=== PATIENT | female | born 1970 | race Caucasian/White ===

== ENCOUNTER → 2023-12-18 15:51 | Outpatient (CLI) | payer OTHER, SELFPAY | PROVIDERS: PCP Family Medicine; Referring Provider Family Medicine; Visit Provider Family Medicine | DX: R06.02 Shortness of breath (principal); Z87.891 Personal history of nicotine dependence | CPT/HCPCS: 94060; 94729 ==

== ENCOUNTER → 2023-12-30 08:39 | Outpatient (CLI) | payer OTHER, SELFPAY ==
[2023-12-30 09:09] LABS: Add Manual Diff / Slide Review NO; Basophils Absolute Auto 100 /uL (0-100); Basophils Percent Auto 0.8 % (0-2); Eosinophils Absolute Auto 100 /uL (0-450); Eosinophils Percent Auto 1.4 % (2-4); Hematocrit 39.6 % (36-46); Hemoglobin 13.3 g/dL (12.0-16.0); Lymphocytes Absolute Auto 2700 /uL (1100-4500); Lymphocytes Percent Auto 40.7 % (25-40); Mean Corpuscular HGB Conc 33.6 % (30-36); Mean Corpuscular Hemoglobin 30.4 PG (26-34); Mean Corpuscular Volume 90.5 fL (80-100); Monocytes Absolute Auto 400 /uL (0-900); Monocytes Percent Auto 5.7 % (3-14); Neutrophils Absolute Auto 3500 /uL (1500-7000); Neutrophils Percent Auto 51.4 % (50-75); Platelet Count 222 X10^3/uL (150-400); Red Blood Cell Count 4.38 X10^6/uL (4.0-5.2); Red Cell Distribution Width 13.6 % (11.6-14.8); White Blood Cell Count 6.7 X10^3/uL (4.5-11.0)
[2023-12-30 09:38] LABS: Alanine Aminotransferase 15 IU/L (<35); Albumin 4.1 g/dL (3.5-5.0); Albumin Globulin Ratio 1.5 (1.0-2.8); Alkaline Phosphatase 45 U/L (38-126); Aspartate Aminotransferase 21 IU/L (14-36); BUN Creatinine Ratio 12.8 (6-22); Bilirubin Total 0.4 mg/dL (0.2-1.3); Blood Urea Nitrogen 11 mg/dL (7-17); Calcium 8.9 mg/dL (8.4-10.2); Carbon Dioxide 26 mmol/L (22-32); Chloride 108 mmol/L (98-107); Cholesterol 247 mg/dL (140-199); Estimated Glomerular Filt Rate > 60 mL/min (>60); Globulin 2.8 g/dL (1.7-4.1); Glucose 94 mg/dL (70-100); HDL Cholesterol 63 mg/dL (40-60); HEMOLYSIS < 15 (0-50); LDL Cholesterol Calculated 168 mg/dL (<100); Potassium 3.9 mmol/L (3.4-5.1); Sodium 139 mmol/L (137-145); Total Protein 6.9 g/dL (6.3-8.2); Triglycerides 81 mg/dL (35-150)
== END ==
PROVIDERS: PCP Family Medicine; Referring Provider Family Medicine; Visit Provider Family Medicine
DX: Z00.00 Encounter for general adult medical examination without abnormal findings (principal); E78.2 Mixed hyperlipidemia; Z78.0 Asymptomatic menopausal state; Z76.89 Persons encountering health services in other specified circumstances
CPT/HCPCS: 36415; 80053; 80061; 85025

== ENCOUNTER → 2024-02-23 15:31 | Outpatient (CLI) | payer OTHER, SELFPAY ==
--- NOTE | 2024-02-23 15:31 | DI.MG.S_ITS ---
BILATERAL DIGITAL SCREENING MAMMOGRAM 3D/2D WITH CAD: 02/23/2024 CLINICAL: Routine screening. Comparison is made to exams dated: 08/05/2021 mammogram, 12/10/2018 mammogram, and 11/03/2016 mammogram - [facility]. There are scattered areas of fibroglandular density in both breasts (category b / 25%-50% glandular tissue). Current study was also evaluated with a Computer Aided Detection (CAD) system. No significant masses, calcifications, or other findings are seen in either breast. There has been no significant interval change. IMPRESSION: NEGATIVE There is no mammographic evidence of malignancy. A 1 year screening mammogram is recommended. Based on the Tyrer Cuzick model (a risk assessment model) the patient's lifetime risk is 8.7% and her 10 year risk is 2.1%. According to the ACR, ACS, and NCCN guidelines, an annual breast MRI exam along with mammogram is recommended if the patient's lifetime risk is 20% or greater. This exam was interpreted at Station ID: [id number]. NOTE: For mammograms, a report in lay terms will be sent to the patient. Approximately 15% of breast malignancies will not be visualized mammographically. In the management of a palpable breast mass, a negative mammogram must not discourage biopsy of a clinically suspicious lesion. Electronically Signed By: Trey springer/eugenio:02/26/2024 06:57:49 letter sent: Normal Exam ACR BI-RADS Category 1: Negative 3341F
== END ==
LOC: MAMMO 15:31
PROVIDERS: PCP Family Medicine; Referring Provider Family Medicine; Visit Provider Family Medicine
DX: Z12.31 Encounter for screening mammogram for malignant neoplasm of breast (principal); R92.323 Mammographic fibroglandular density, bilateral breasts
CPT/HCPCS: 77063; 77067

== ENCOUNTER → 2024-05-17 07:33 | Outpatient (CLI) | payer OTHER, SELFPAY ==
--- NOTE | 2024-05-17 07:34 | DI.US.S_ITS ---
PROCEDURE: US PELVIC COMPLETE INDICATIONS: PMB TECHNIQUE: Real-time scanning was performed of the pelvic organs, with image documentation. Additional endovaginal scanning was necessary due to incomplete visualization of the adnexal and endometrial structures by transabdominal scanning. COMPARISON: None. FINDINGS: Uterus: Uterus is retroverted and normal in size at 7.8 x 3.8 x 5.1 cm. The myometrium is heterogeneous. The endometrium measures 3.4 mm combined thickness. Mid anterior intramural fibroid measuring 2.4 x 2.5 x 2.8 centimeters. Ovaries: The right ovary measures 3.0 x 2.5 x 1.5 cm, with a calculated ovarian volume of 5.9 cc. Simple cyst in the right ovary measuring 1.5 centimeters. The left ovary measures 2.5 x 2.7 x 3.0 cm, with a calculated ovarian volume of 10.0 cc. Complex cyst in the left ovary measuring 2.4 x 1.6 x 2.2 centimeters. The ovaries have a normal sonographic appearance. Less than 12 follicles can be seen in each ovary. No adnexal masses are seen. Other: No pathologic free abdominal or pelvic fluid. IMPRESSION: 1. Endometrium is normal in thickness. 2. Complex left ovarian cyst measuring 2.4 centimeters. May represent a hemorrhagic cyst. Given postmenopausal status, 6-12 week follow-up ultrasound is recommended. 3. Intramural fibroid measuring 2.8 centimeters. We strive to produce accurate, complete, and clear reports of imaging services. To assist us in improving patient care, this report was composed using standard report templates and voice recognition software. Therefore, it may contain abnormal punctuation, insertions and/or omissions. Occasional wrong-word or sound-alike substitutions may occur. Though we review the report and make efforts to correct it, we do recommend that the report be read carefully in proper context to recognize any text inaccuracies. Dictated by: Cortes Turcios M.D. on 05/17/2024 at 9:19 Approved by: Cortes Turcios M.D. on 05/17/2024 at 9:23
== END ==
PROVIDERS: PCP Family Medicine; Referring Provider Family Medicine; Visit Provider Family Medicine
DX: N95.0 Postmenopausal bleeding (principal); D25.1 Intramural leiomyoma of uterus; N83.291 Other ovarian cyst, right side; N83.292 Other ovarian cyst, left side; Z86.018 Personal history of other benign neoplasm
CPT/HCPCS: 76830; 76856

== ENCOUNTER → 2024-06-10 15:13 | Outpatient (CLI) | payer OTHER, SELFPAY ==
[2024-06-10 17:06] LABS: Cancer Antigen 125 8.2 U/mL (0-35)
== END ==
PROVIDERS: PCP Family Medicine; Referring Provider Obstetrics & Gynecology; Visit Provider Obstetrics & Gynecology
DX: N83.209 Unspecified ovarian cyst, unspecified side (principal); D25.9 Leiomyoma of uterus, unspecified
CPT/HCPCS: 36415; 86304; 86305

== ENCOUNTER → 2024-07-08 11:00 | Outpatient (CLI) | payer OTHER, SELFPAY | LOC: LAB 11:01 | PROVIDERS: PCP Family Medicine; Referring Provider Family Medicine; Visit Provider Family Medicine | DX: Z11.59 Encounter for screening for other viral diseases (principal) | CPT/HCPCS: 36415; 86706 ==

== ENCOUNTER → 2025-07-11 14:36 | Outpatient (CLI) | payer OTHER, SELFPAY ==
--- NOTE | 2025-07-11 14:38 | DI.MG.S_ITS ---
MM screening mammo BI: 07/11/2025. BI-RADS: 1 CLINICAL: 54-year old female for bilateral screening mammogram. Tyrer-Cuzick lifetime risk of 9.0%. No personal or first-degree family history of breast cancer. PRIOR EXAMS 02/23/2024, outside films 08/05/2021, 11/30/2018, 11/03/2016. MAMMOGRAPHY TECHNIQUE: 2D and 3D (tomosynthesis) digital mammographic views obtained, with additional images as needed for full coverage. Current study was also evaluated with a Computer Aided Detection (CAD) system. DENSITY B. There are scattered areas of fibroglandular density. MAMMOGRAPHY FINDINGS Bilateral: No suspicious mass, asymmetry, microcalcification, or other abnormality seen. IMPRESSION: * No evidence of malignancy. RECOMMENDATIONS Bilateral * Annual screening mammography. OVERALL ASSESSMENT CATEGORY BI-RADS-1: Negative. The [employer] recommends annual screening mammography beginning at age 40 for women with average risk of breast cancer. ELECTRONICALLY SIGNED: Jaclyn Marie M.D. on 07/15/2025 at 12:05:02 PM PT Interpreting Station ID: [id number]
== END ==
LOC: MAMMO 14:37
PROVIDERS: PCP Family Medicine; Referring Provider Family Medicine; Visit Provider Family Medicine
DX: Z12.31 Encounter for screening mammogram for malignant neoplasm of breast (principal)
CPT/HCPCS: 77063; 77067